=== PATIENT | male | born 2000 | race Caucasian/White ===

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

== ENCOUNTER 2021-09-23 15:38 | Emergency (ER) | payer OTHER ==
[2021-09-23 15:46] VITALS: RESP 16; TEMP 97.9
[2021-09-23] MEDS ORDERED: ACETAMINOPHEN TAB 500 MG TAB PO STA (16:16)
[2021-09-23] MEDS ORDERED: ONDANSETRON 4 MG TAB PO STA (16:17)
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
[2021-09-23 18:13] VITALS: BP 126/74; PULSE 87
== END 2021-09-23 18:10 | disposition home or self-care (01) ==
LOC: EC 15:38
DX: S06.0X9A Concussion with loss of consciousness of unspecified duration, initial encounter (principal); F17.290 Nicotine dependence, other tobacco product, uncomplicated; F12.90 Cannabis use, unspecified, uncomplicated; W22.8XXA Striking against or struck by other objects, initial encounter
CPT/HCPCS: 70450; 72125; 99284

== ENCOUNTER 2025-03-07 18:08 | Emergency (ER) | payer OTHER ==
[2025-03-07 18:29] VITALS: RESP 16
--- NOTE | 2025-03-07 20:05 | ED ---
ENT HPI - General Chief complaint: ENT Stated complaint: Michael ear pain Time Seen by Provider: 03/07/25 18:20 Source: patient, RN notes reviewed Mode of arrival: ambulatory Limitations: no limitations - History of Present Illness Initial comments: 24-year-old male reporting to emergency room with complaints of bilateral ear pain and pressure. Patient states that over the weekend he went [place] [employer] [place] over the weekend and on Friday started having right-sided ear pain and progressed to left-sided ear pain as well. He states that when he used a cotton swab in both his ears there was a mild drainage. He states that his hearing feels muffled. Denies fevers, chills, cough, rhinorrhea, congestion, sore throat. - Related Data Previous Rx's Medication Instructions Recorded Ibuprofen [Motrin] 800 mg PO Q8HR PRN #30 tab 03/07/25 Allergies Allergy/AdvReac Type Severity Reaction Status Date / Time No Known Allergies Allergy Verified 03/07/25 18:29 Review of Systems ROS Statement: Those systems with pertinent positive or pertinent negative responses have been documented in the HPI. ROS Other: All systems not noted in ROS Statement are negative. Past Medical History Past Medical History: No Reported History History of Any Multi-Drug Resistant Organisms: None Reported Past Surgical History: Orthopedic Surgery Additional Past Surgical History / Comment(s): radial ulnar surgery Past Psychological History: No Psychological Hx Reported Smoking Status: Vaper Past Alcohol Use History: None Reported Past Drug Use History: Marijuana General Exam Limitations: no limitations Expanded TM/Canal exam: Erythema: Right TM, Left TM, Canal Discharge: Right TM, Left TM, Canal Tenderness: Right TM, Left TM Neck exam: Present: normal inspection. Absent: tenderness, meningismus, lymphadenopathy Respiratory exam: Present: normal lung sounds bilaterally. Absent: respiratory distress, wheezes, rales, rhonchi, stridor Cardiovascular Exam: Present: regular rate, normal rhythm, normal heart sounds. Absent: systolic murmur, diastolic murmur, rubs, gallop, clicks GI/Abdominal exam: Present: soft, normal bowel sounds. Absent: distended, tenderness, guarding, rebound, rigid Course Vital Signs 03/07/25 03/07/25 18:27 20:22 Temperature 98.5 F 98.4 F Pulse Rate 89 63 Respiratory 16 16 Rate Blood Pressure 133/75 117/70 O2 Sat by Pulse 99 98 Oximetry Medical Decision Making - Medical Decision Making Was pt. sent in by a medical professional or institution (KIM Garcia, FRAME PULLEY MORTISING MACHINE OPERATOR, urgent care, hospital, or long term...) When possible be specific @ -No Did you speak to anyone other than the patient for history (EMS, parent, family, police, friend...)? What history was obtained from this source @ -No Did you review nursing and triage notes (agree or disagree)? Why? @ -I reviewed and agree with nursing and triage notes Were old charts reviewed (outside hosp., previous admission, EMS record, old EKG, old radiological studies, urgent care reports/EKG's, long term records)? Report findings @ -No old charts were reviewed Differential Diagnosis (chest pain, altered mental status, abdominal pain women, abdominal pain men, vaginal bleeding, weakness, fever, dyspnea, syncope, headache, dizziness, GI bleed, back pain, seizure, CVA, palpatations, mental health, musculoskeletal)? @ -Otitis media, otitis externa, malignant otitis externa, mastoiditis, this list is not all inclusive EKG interpreted by me (3pts min.). @ -None X-rays interpreted by me (1pt min.). @ -None done CT interpreted by me (1pt min.). @ -None done U/S interpreted by me (1pt. min.). @ -None done What testing was considered but not performed or refused? (CT, X-rays, U/S, labs)? Why? @ -None What meds were considered but not given or refused? Why? @ -None Did you discuss the management of the patient with other professionals (professionals i.e. KIM Garcia, FRAME PULLEY MORTISING MACHINE OPERATOR, lab, RT, psych nurse, social service technician, operations lieutenant, teacher, senior commercial loan officer, watch caser)? Give summary @ -No Was smoking cessation discussed for >3mins.? @ -No Was critical care preformed (if so, how long)? @ -No Were there social determinants of health that impacted care today? How? (Homelessness, low income, unemployed, alcoholism, drug addiction, transportation, low edu. Level, literacy, decrease access to med. care, custodial, rehab)? @ -No Was there de-escalation of care discussed even if they declined (Discuss DNR or withdrawal of care, Hospice)? DNR status @ -No What co-morbidities impacted this encounter? (DM, HTN, Smoking, COPD, CAD, Cancer, CVA, ARF, Chemo, Hep., AIDS, mental health diagnosis, sleep apnea, morbid obesity)? @ -None Was patient admitted / discharged? Hospital course, mention meds given and route, prescriptions, significant lab abnormalities, going to OR and other pertinent info. @ -Discharge. 24-year-old male presenting to the ER with complaints of bilateral ear pain and pressure. On examination there is noted to be canal te nderness, canal edema and canal discharge from bilateral ears consistent with otitis externa. Patient provided with topical antibiotic drops and is instructed continue drops at home. Recommend he continue Tylenol Motrin as needed at home for pain relief. Recommend follow-up with primary care provider after antibiotics are completed to ensure resolution of infection. Case discussed with my attending Dr. Mejia. Undiagnosed new problem with uncertain prognosis? @ -No Drug Therapy requiring intensive monitoring for toxicity (Heparin, Nitro, Insulin, Cardizem)? @ -No Were any procedures done? @ -No Diagnosis/symptom? @ -Otitis external bilaterally Acute, or Chronic, or Acute on Chronic? @ -Acute Uncomplicated (without systemic symptoms) or Complicated (systemic symptoms)? @ -Uncomplicated Side effects of treatment? @ -No Exacerbation, Progression, or Severe Exacerbation? @ -No Poses a threat to life or bodily function? How? (Chest pain, [place], [place], pneumonia, PE, COPD, DKA, ARF, appy, cholecystitis, CVA, Diverticulitis, Homicidal, Suicidal, threat to staff... and all critical care pts) @ -No Disposition Clinical Impression: Otitis externa Disposition: HOME SELF-CARE Condition: Good Instructions (If sedation given, give patient instructions): Ofloxacin (Into the ear), Swimmer's Ear (ED) Additional Instructions: Please return to the Emergency Department if symptoms worsen or any other concerns. Continue to take antibiotic drops, 3 drops in both ears 2 times per day for 1 week Prescriptions: Ibuprofen [Motrin] 800 mg PO Q8HR PRN #30 tab PRN Reason: Pain Is patient prescribed a controlled substance at d/c from ED?: No Referrals: Sukhdeep Olmos MD [Primary Care Provider] - 1-2 days Time of Disposition: 20:04
[2025-03-07] MEDS: IBUPROFEN 800 MG TAB PO STA (20:19)
[2025-03-07] MEDS: CIPROFLOXACIN-DEXAMETH 0.3-0.1% DROPS 7.5 ML BTL BOTH EARS STA (20:19)
[2025-03-07 20:24] VITALS: BP 117/70; PULSE 63; TEMP 98.4
== END 2025-03-07 20:22 | disposition home or self-care (01) ==
LOC: EC 18:08
DX: H60.93 Unspecified otitis externa, bilateral (principal); F17.290 Nicotine dependence, other tobacco product, uncomplicated
CPT/HCPCS: 99283